=== PATIENT | male | born 1945 | race Caucasian/White ===

== ENCOUNTER 2016-09-04 16:30 | Emergency (ER) | payer OTHER, MEDICARE ==
[~2016-09-04] VITALS: Ht 172.7 cm; Wt 79.4 kg
--- NOTE | 2016-09-04 17:23 | ED GENERAL ADULT ---
History of Present Illness General Chief Complaint: Upper Extremity Problem Stated Complaint: RT HAND TINGLING X 2WEEKS Source: patient Exam Limitations: no limitations Vital Signs & Intake/Output Vital Signs & Intake/Output Vital Signs Date Time Temp Pulse Resp B/P Pulse O2 O2 Flow FiO2 Ox Delivery Rate 09/04 1913 160/70 09/04 1654 98.4 84 18 170/83 100 Room Air Allergies Coded Allergies: MDX - Nka - No Known Allergies (NKA - NO KNOWN ALLERGIES) (11/24/13) No Known Drug Allergies (09/04/16) Reconcile Medications No Known Home Medications Triage Note: C/O TINGLING IN R HAND X 2-3 WEEKS. (WORSE AT NIGHT). STATES HE FELL ON HIS RIGHT ELBOW WHILE HIKING ON ICE PRIOR TO SXS. TINGLING DECREASES WHEN HE STANDS UP STRAIGHT. DENIES HEADACHE, DIZZINESS, BLURRED VISION. Triage Nurses Notes Reviewed? yes Onset: Abrupt Duration: week(s): (4), intermittent Timing: recent history No Modifying Factors: none HPI: 71-year-old male comes into emergency room for further evaluation of numbness and tingling to his right hand has been going on the past 4 weeks. Symptoms are worse at nighttime. Patient reports that he is healthy with no medical problems other than increased pressure in his right eye and was recently started on eyedrops. He's noted some tingling to his eye at times. Denies any headache vomiting slurring words confusion or weakness on one side of the body. Patient is a very high functioning 8-year-old male. Patient does lots of exercise. Patient reports that he ran 5 miles of the day. Patient constantly goes in the [place] h[place]. Patient has a low resting heart rate reports. History of Lyme disease. Patient may have been bitten by a tick again. Patient comes in because the numbness and tingling is not normal for him. (ANGELINA MORALES) Past History Travel History Traveled to [place] past 21 day No Medical History Any Pertinent Medical History? see below for history Neurological: NONE EENT: NONE Cardiovascular: NONE Respiratory: NONE Gastrointestinal: NONE Hepatic: NONE Renal: NONE Musculoskeletal: NONE Psychiatric: NONE Endocrine: NONE Surgical History Surgical History: non-contributory Psychosocial History What is your primary language Czech Tobacco Use: Quit >30 days ago ETOH Use: denies use Family History Hx Contributory? No (ANGELINA MORALES) Review of Systems Review of Systems Constitutional: Reports: no symptoms. EENTM: Reports: no symptoms. Respiratory: Reports: no symptoms. Cardiovascular: Reports: no symptoms. GI: Reports: no symptoms. Genitourinary: Reports: no symptoms. Musculoskeletal: Reports: no symptoms. Skin: Reports: no symptoms. Neurological/Psychological: Reports: see HPI. Hematologic/Endocrine: Reports: no symptoms. Immunologic/Allergic: Reports: no symptoms. All Other Systems: Reviewed and Negative (ANGELINA MORALES) Physical Exam Physical Exam General Appearance: well developed/nourished, no apparent distress, alert, awake Head: atraumatic, normal appearance, active bleeding Eyes: Bilateral: normal appearance, PERRL, EOMI. Ears, Nose, Throat: normal pharynx, normal ENT inspection, hearing grossly normal Neck: normal inspection, supple, full range of motion Respiratory: normal breath sounds, chest non-tender, no respiratory distress Cardiovascular: regular rate/rhythm Gastrointestinal: normal bowel sounds, soft, non-tender Back: normal inspection, normal range of motion Extremities: normal inspection, normal range of motion Neurologic/Psych: no motor/sensory deficits, awake, alert, oriented x 3, normal gait, normal mood/affect Skin: intact, normal color Core Measures ACS in differential dx? No CVA/TIA Diagnosis: No Severe Sepsis Present: No Septic Shock Present: No (ANGELINA MORALES) Progress Differential Diagnoses I considered the following diagnoses in my evaluation of the patient: Lyme disease, CVA, ulnar nerve entrapment, median nerve entrapment, carpal tunnel, Plan of Care: Orders Procedure Date/time Status COMPREHENSIVE METABOLIC PANEL 09/04 1723 Complete CBC WITHOUT DIFFERENTIAL 09/04 1723 Complete Laboratory Tests 09/04/16 1744: Anion Gap 11, Estimated GFR 55 L, BUN/Creatinine Ratio 16.2, Glucose 74, Calcium 10.0, Total Bilirubin 0.6, AST 151 H, ALT 91 H, Alkaline Phosphatase 49, Total Protein 8.4 H, Albumin 4.9, Globulin 3.5, Albumin/Globulin Ratio 1.4, CBC w Diff NO MAN DIFF REQ, RBC 4.74, MCV 92.0, MCH 31.1 H, RDW 14.8 H, MPV 8.3, Gran % 52.7, Lymphocytes % 38.5, Monocytes % 4.9, Eosinophils % 3.1, Basophils % 0.8, Absolute Granulocytes 2.9, Absolute Lymphocytes 2.1, Absolute Monocytes 0.3, Absolute Eosinophils 0.2, Absolute Basophils 0, PUBS MCHC 33.8 09/04/161722: Lyme Disease Antibody Cancelled Diagnostic Imaging: Viewed by Me: CT Scan. Discussed w/RAD: CT Scan. Radiology Impression: SERVICE DATE: 09/04/16 EXAM TYPE: CAT - CT HEAD WO IV CONTRAST EXAMINATION: CT HEAD WITHOUT CONTRAST CLINICAL INFORMATION: Right- sided numbness and tingling. 8-year-old male patient. COMPARISON: None. TECHNIQUE: Contiguous axial imaging was performed from the skull base to vertex without intravenous administration of contrast. DLP: 601 mGy-cm. FINDINGS: There is no evidence of acute intracranial hemorrhage or territorial infarction. No abnormal mass effect or midline shift is seen. Sykes to white matter differentiation is well preserved. No extra-axial fluid collections are identified. The ventricles are normal in size for age. There is no abnormal attenuation within the brain parenchyma. The osseous structures and soft tissues are normal. The mastoid air cells and visualized portions of the paranasal sinuses are well aerated. IMPRESSION: No acute intracranial pathology. DICTATED BY: HERACLIO BOBO MD DATE/TIME DICTATED:09/04/161807 CARGO BROKER: MARLEN DATE/TIME TRANSCRIBED:09/04/161807 Initial ED EKG: none (VLAD VARELA,ANGELINA) Departure Departure Disposition: HOME OR SELF CARE Condition: Stable Clinical Impression Primary Impression: Right hand paresthesia Referrals: TAMIKO MORALES,NICO GLEZ DO (PCP/Family) Additional Instructions: Follow-up with orthopedic doctor. Follow-up with your primary care doctor to get Lyme titer. Return if any other concerns worsening symptoms. Please go over all results of today's visit with your primary care doctor. Contact your primary care doctor to let them know you were here in the emergency room. There may be nonspecific findings which may not be related to your visit today here in the emergency room but may require further evaluation and chronic monitoring by your primary care doctor. If you had a laceration today the chance of foreign body always remains. You should follow-up with your primary care doctor for recheck in 3-5 days for a wound check. If you had an x-ray done there is a chance that a fracture could have been missed on initial read and you should follow-up with your primary care doctor for repeat x-rays if symptoms persist. If your blood pressure was elevated here in the emergency room please have rechecked by her primary care doctor within the next 48 hours by your primary care doctor. If you were prescribed a narcotic here in the emergency room or any type of controlled substances you're not allowed to drive while taking this medication or operate any type of heavy machinery. Narcotics can make you feel lightheaded dizziness nausea and can cause constipation. You may need to pickling operator a stool softener. Thank you for choosing [facility] emergency room. Please return to the emergency room immediately if you have any other concerns worsening of symptoms. Departure Forms: Customer Survey General Discharge Information Prescriptions: Current Visit Scripts No Known Home Medications Comments 09/04/2016 9:33:22 PM Patient clinically looks well. Nontoxic-appearing. High functioning 8-year-old male. Patient was seen by Dr. Smith. Symptoms were consistent with likely paresthesia secondary to ulnar nerve her median nerve. Refer to orthopedic doctor. Patient declined a splint here. Patient will follow up with his doctor to get Lyme titer. Patient does not want to wait for another redraw. Return if any other concerns worsening symptoms. (ANGELINA MORALES) PA/WREATH MAKER Co-Sign Statement Statement: ED Attending supervision documentation- [X] I saw and evaluated the patient. I have also reviewed all the pertinent lab results and diagnostic results. I agree with the findings and the plan of care as documented in the PA's/WREATH MAKER's documentation. [] I have reviewed the ED Record and agree with the PA's/WREATH MAKER's documentation. [] Additions or exceptions (if any) to the PAs/WREATH MAKER's note and plan are summarized below: [] (MARIBELL WALDEN,GARETH Walton) Critical Care Note Critical Care Note Critical Care Time: non-applicable (ANGELINA MORALES)
[2016-09-04 17:59] LABS: ABSOLUTE BASOPHIL COUNT 0 /CUMM (0.0-0.2); ABSOLUTE EOSINOPHIL COUNT 0.2 /CUMM (0.0-0.7); ABSOLUTE GRANULOCYTE CT 2.9 /CUMM (1.4-6.5); ABSOLUTE LYMPH COUNT 2.1 /CUMM (1.2-3.4); ABSOLUTE MONOCYTE COUNT 0.3 /CUMM (0.10-0.60); BASOPHIL % 0.8 % (0.0-2.0); EOSINOPHIL % 3.1 % (0-5); GRANULOCYTE % 52.7 % (42.2-75.2); HEMATOCRIT 43.7 % (42-52); MEAN CORPUSCULAR HGB 31.1 PG (27.0-31.0); MEAN CORPUSCULAR HGB CONC 33.8 G/DL (33.0-37.0); MEAN PLATELET VOLUME 8.3 FL (7.4-10.4); PLATELET COUNT 212 /CUMM (130-400); RBC DISTRIBUTION WIDTH 14.8 % (11.5-14.5); RED BLOOD CELL CT 4.74 /CUMM (4.70-6.10); WHITE BLOOD CELL COUNT 5.4 /CUMM (4.8-10.8)
--- NOTE | 2016-09-04 18:14 | CT SCAN REPORT ---
EXAMINATION: CT HEAD WITHOUT CONTRAST CLINICAL INFORMATION: Right-sided numbness and tingling. 8-year-old male patient. COMPARISON: None. TECHNIQUE: Contiguous axial imaging was performed from the skull base to vertex without intravenous administration of contrast. DLP: 601 mGy-cm. FINDINGS: There is no evidence of acute intracranial hemorrhage or territorial infarction. No abnormal mass effect or midline shift is seen. Sykes to white matter differentiation is well preserved. No extra-axial fluid collections are identified. The ventricles are normal in size for age. There is no abnormal attenuation within the brain parenchyma. The osseous structures and soft tissues are normal. The mastoid air cells and visualized portions of the paranasal sinuses are well aerated. IMPRESSION: No acute intracranial pathology.
[2016-09-04 19:13] VITALS: BP 160/70
== END 2016-09-04 19:15 ==
LOC: ERH 16:30
PROVIDERS: Physician Assistant Medical
DX: R20.2 Paresthesia of skin (principal)
CPT/HCPCS: 86618